=== PATIENT | male | born 1950 | race Caucasian/White ===

== ENCOUNTER 2016-09-20 17:21 | Emergency (ER) | payer OTHER, MEDICARE ==
[~2016-09-20 17:21] MED LIST: ASA CHILDREN'S81 MG PO; AZOR 5-20 MG T1 EACH PO; CARVEDILOL25 MG PO; CIALIS2.5 MG PO; CRESTOR10 MG PO; FLOMAX DPS0.4 MG PO; IBUPROFEN200 MG PO; IMDUR DPS30 MG PO; MULTIPLE VITAM1 EACH PO; NITROSTAT0.4 MG SL; OMEGA-3 DPS1000 MG PO
--- NOTE | 2016-09-22 12:40 | ER ---
ADMIT: 09/20/2016 RM/LOC: ER [facility] MR#: [id number] [facility] [address] [place], [place] [address] [address] [facility] [address] [place] [id number] Emergency Room Report SEX: M AGE: 65 : 1950 DATE: 09/20/2016 ADDENDUM: A 65-year-old white male coming in with PVCs, he has had these before. Little short of breath with this. His CBC and chemistry are negative. His BNP is up a little bit, but his troponin was negative. He is not really having any pain. At this time, they had him on Coreg, but he is maxed out 25 b.i.d. Did speak with Dr. August on the phone. They are going to talk to him tomorrow, recheck some records, and adjust some medicines and then make a followup appointment with him. The patient will call in the morning. CONDITION ON DISCHARGE: Good. Umesh Martinez MD/ willam JOB #: [id number] CC: Umesh Martinez MD, Attending Physician Jayro Tolbert MD, Family Physician
== END 2016-09-20 19:37 | disposition home or self-care (01) ==
LOC: ER 17:21
DX: R06.02 Shortness of breath (principal); I25.10 Atherosclerotic heart disease of native coronary artery without angina pectoris; I10 Essential (primary) hypertension; G47.30 Sleep apnea, unspecified; Z79.899 Other long term (current) drug therapy